=== PATIENT | female | born 1935 | race Caucasian/White ===

== ENCOUNTER 2021-02-23 11:56 | Emergency (ER) | payer MEDICARE, OTHER ==
[2021-02-23 12:21] LABS: BILIRUBIN,URINE NEGATIVE (NEGATIVE); GLUCOSE, URINE (UA) NEGATIVE (NEGATIVE); KETONES,URINE (UA) NEGATIVE (NEGATIVE); LEUKOCYTE ESTERASE, URINE NEGATIVE (NEGATIVE); NITRITE,URINE NEGATIVE (NEGATIVE); OCCULT BLOOD,URINE LARGE (NEGATIVE); PROTEIN,URINE NEGATIVE (NEGATIVE); UROBILINOGEN,URINE 0.2 (NORMAL) E.U./dL (NORMAL)
[2021-02-23 12:25] LABS: CLARITY,URINE SL. CLOUDY (CLEAR)
[2021-02-23] MEDS ORDERED: ONDANSETRON 4 MG/2 ML VIAL IVP STA ×2 (12:27→14:41)
[2021-02-23] MEDS ORDERED: HYDROmorphone 1 MG/ML CARPUJECT IVP STA (12:27)
--- NOTE | 2021-02-23 12:27 | ED Physician Documentation ---
History of Present Illness - Stated complaint Stated Complaint: FEMALE ,R BACK PX - Chief complaint Chief Complaint: Back Pain - Additonal information Additional information: 85-year-old female presents emergency department for evaluation of acute onset right low back and right flank pain. She reports severe cramping and pressure- like sensation. She is tearful in the exam room. She states that a number of years ago she did have kidney stones for which she was hospitalized for 5 days. She did undergo Surgical correction of the stones. She denies any dysuria urgency or frequency. No fevers. denies CP, SOA Past medical history includes hypertension and early diabetes. She does report a history of SVT status post cardioversion in May 2020. pt is visiting the [facility] from [facility]. here to see her Son. PMH: prediabetic, htn, hyperlipidemia SOC: never smoker; rare etoh meds: Losartan 50 mg twice daily, simvastatin 40 mg daily, metoprolol 50 mg twice daily, Metformin 500 mg twice daily Review of Systems Constitutional: denies: Fever Eyes: reports: Reviewed and negative Ears: reports: Reviewed and negative Nose: reports: Reviewed and negative Respiratory: denies: Dyspnea, Cough GI: reports: Abdominal Pain. denies: Nausea, Vomiting, Constipation, Diarrhea, Hematemesis : denies: Dysuria, Frequency, Hesitancy Skin: reports: Reviewed and negative Musculoskeletal: reports: Reviewed and negative Neurologic: reports: Reviewed and negative PD PAST MEDICAL HISTORY - Present Medications Home Medications: Ambulatory Orders Medication Instructions Recorded Confirmed HYDROcod/ACETAM 5/325 [[place] 5/325] 1 tab PO BID #8 tablet 02/23/21 - Allergies Allergies/Adverse Reactions: Allergies Allergy/AdvReac Type Severity Reaction Status Date / Time trovafloxacin [From John] Allergy Anaphylaxis Verified 02/23/21 12:13 PD ED PE EXPANDED - General General: Alert, In Pain - Cardiac Cardiac: Regular Rate, Radial strong equal, Cap refill < 2 sec. No: Murmur Present - Respiratory Respiratory: Clear to ausultation nohemi. No: Distress, Labored - Abdomen Abdomen: Normal Bowel sounds, Tender to palpation (right lowr abdomen and righ tlow back/flank. no guarding/rebound). No: Rebound, Guarding - Back Back: Normal exam. No: CVA TTP right, CVA TTP left - Derm Derm: Normal color, Warm and dry. No: Rash - Extremities Extremities: Normal. No: Deformity, Tenderness - Neuro Neuro: Alert and Oriented X 3, CNII-XII intact - GCS Eye Opening: Spontaneous Motor: Obeys Commands Verbal: Oriented Total: 15 Results - Vitals Vitals: Vital Signs - 24 hr 02/23/21 02/23/21 02/23/21 12:08 13:13 14:55 Temperature 36.8 C Heart Rate 64 70 74 Respiratory 16 16 16 Rate Blood Pressure 190/85 H 160/75 H 163/72 H O2 Saturation 99 94 96 02/23/21 17:00 Temperature Heart Rate 81 Respiratory 18 Rate Blood Pressure 183/96 H O2 Saturation 99 Oxygen O2 Source Room air - Labs Labs: Laboratory Tests 02/23/21 02/23/21 02/23/21 12:09 12:25 12:25 WBC 6.8 RBC 4.37 Hgb 12.8 Hct 38.8 MCV 88.8 MCH 29.3 MCHC 33.0 RDW 13.1 Plt Count 204 MPV 9.2 Neut # (Auto) 3.9 Lymph # (Auto) 2.1 [place] # (Auto) 0.7 Eos # (Auto) 0.1 Baso # (Auto) 0.1 Absolute Nucleated RBC 0.00 Nucleated RBC % 0.0 Sodium 140 Potassium 4.2 Chloride 106 Carbon Dioxide 23 Anion Gap 11.0 BUN 25 H Creatinine 1.3 H Estimated GFR (MDRD) 39 L Glucose 146 H Lactic Acid Calcium 9.4 Total Bilirubin 0.8 AST 19 ALT 18 Alkaline Phosphatase 44 Total Protein 7.4 Albumin 4.0 Globulin 3.4 Albumin/Globulin Ratio 1.2 Lipase 49 Urine Color YELLOW Urine Clarity SL. CLOUDY Urine pH 5.0 Ur Specific [place] 1.025 Urine Protein NEGATIVE Urine Glucose (UA) NEGATIVE Urine Ketones NEGATIVE Urine Occult Blood LARGE H Urine Nitrite NEGATIVE Urine Bilirubin NEGATIVE Urine Urobilinogen 0.2 (NORMAL) Ur Leukocyte Esterase NEGATIVE Urine RBC TNTC H Urine WBC 0-3 Ur Squamous Epith Cells MOD Squamous H Urine Bacteria Few Ur Microscopic Review INDICATED Urine Culture Comments NOT INDICATED 02/23/21 15:24 WBC RBC Hgb Hct MCV MCH MCHC RDW Plt Count MPV Neut # (Auto) Lymph # (Auto) Glasscock # (Auto) Eos # (Auto) Baso # (Auto) Absolute Nucleated RBC Nucleated RBC % Sodium Potassium Chloride Carbon Dioxide Anion Gap BUN Creatinine Estimated GFR (MDRD) Glucose Lactic Acid 1.3 Calcium Total Bilirubin AST ALT Alkaline Phosphatase Total Protein Albumin Globulin Albumin/Globulin Ratio Lipase Urine Color Urine Clarity Urine pH Ur Specific [place] Urine Protein Urine Glucose (UA) Urine Ketones Urine Occult Blood Urine Nitrite Urine Bilirubin Urine Urobilinogen Ur Leukocyte Esterase Urine RBC Urine WBC Ur Squamous Epith Cells Urine Bacteria Ur Microscopic Review Urine Culture Comments - Rads (name of study) Ct abd Radiology: Final report received (Appearance of colonic thickening while this could be secondary to incomplete distention may be possible early colitis. Focal area of decreased contrast enhancement within the infrarenal aorta. Overall appearance is suggestive of an area of ulceration and subsequent thrombus of indeterminate age.) PD MEDICAL DECISION MAKING - ED course Complexity details: reviewed results, d/w patient, d/w air quality consultant (malik vascular surgeon [facility]) ED course: 85-year-old female presents emergency department for evaluation of acute right flank and right lower quadrant abdominal pain. Similar to when she had kidney stones many years ago. On presentation she did have pain that was reproducible with deep palpation. Screening labs did not show any worrisome findings. No leukocytosis. The urine did show moderate amount of blood but no findings of infection. A CT Was completed and no findings of stones or hydronephrosis were seen. There is a suggestion of early colitis within the left lower quadrant. Patient is not having black or bloody stools and no left-sided abdominal pain was elicited. The most impressive finding was suggestion of an infrarenal thrombus in the aorta. These findings and CT images were shared with Dr. Bates a vascular surgeon with [facility]. 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 He would recommend that the patient remain on her aspirin daily but does not need emergent intervention at this time. He would recommend the patient be seen by a vascular surgeon when she returns to [place] within the next 4 to 6 weeks. The imaging findings and plan were discussed with the patient. A limited amount of hydrocodone was prescribed for pain and emergent return precautions were discussed. Departure - Departure Disposition: 01 Home, Self Care Clinical Impression: Acute right flank pain, Aortic thrombus Hematuria Qualifiers: Hematuria type: unspecified type Qualified Code(s): R31.9 - Hematuria, unspecified Condition: Stable Record reviewed to determine appropriate education?: Yes Prescriptions: HYDROcod/ACETAM 5/325 [[place] 5/325] 1 tab PO BID #8 tablet Comments: Lynda you were seen in the emergency department today for sudden onset of pain on your right low back and right lower quadrant of your abdomen. You had discussed with us a history of kidney stones in the past. Your urine today did show a moderate amount of blood but no infection. We did do a CT scan of your abdomen and it does show an area within the infrarenal aorta (near the kidneys) that is suggestive of a thrombus or clot formation. These images were discussed with a vascular surgeon in [place]. He was able to personally view the images. Based on the appearance of these it is likely that this is a chronic condition that you have had for quite some time. He would recommend very close follow-up with a vascular surgeon in [place] when you return within 4 to 6 weeks. He recommends that you take a daily dose of aspirin. Though the CT scan did not show any findings of kidney stones within the kidneys or the ureters some very small ones can be missed. It is very important that you continue to follow-up with your primary care provider. Your urine should be rechecked for blood and your symptoms should be rechecked in the next 2 to 3 weeks. If at any point you feel that you are having worsening pain, you develop any chest pain or shortness of air, you have bloody stools, then please return immediately to the emergency department. I am prescribing a short course of narcotic pain medication for you. These are potentially dangerous and addictive medications that should be used carefully. These medications may constipate you. Take an unir-vuv-dvalapt stool softener (docusate) twice daily with plenty of water while taking these medications. If you go 24 hours without a bowel movement, take [id number] miralax, per package instructions. Do not drink or drive while taking these medications. If you received narcotic or sedating medications while in the emergency department, do not drive for 24 hours. Store this medication in a safe, secure place and out of reach of children. It is a violation of federal law to give or sell this medication to another person or to use in a manner other than prescribed. The ED will not refill narcotic prescriptions, including prescriptions lost or stolen. To dispose of unwanted medications: 1. [facility] at [address] in [place] has a medication drop box. They accept prescription medications (in pill form) Saturday through Saturday 9:00 a.m. to 5:00 p.m. 2. The [facility] [employer] accepts prescription medications (in pill form only) for disposal year round. Call for more information. 3. Contact the [facility] for the next [facility] sponsored prescription drug collection event. , [phone], or [phone]; Note that many narcotic pain relievers also contain Tylenol/acetaminophen. Please ensure that your total dose of acetaminophen from all sources does not exceed 3 g (3000 mg) per day.
[2021-02-23 12:32] LABS: BACTERIA,URINE Few /HPF (None Seen); RBC,URINE TNTC /HPF (0-5); SQUAMOUS EPITHELIAL CELL,UR MOD Squamous (<= Few); WBC,URINE 0-3 /HPF (0-5)
[2021-02-23 12:35] LABS: BASOPHILS # (AUTO) 0.1 10^3/uL (0.0-0.1); BASOPHILS % (AUTO) 0.7 %; EOSINOPHILS # (AUTO) 0.1 10^3/uL (0.0-0.7); EOSINOPHILS % (AUTO) 1.6 %; HCT - HEMATOCRIT 38.8 % (37.0-47.0); HGB - HEMOGLOBIN 12.8 g/dL (12.0-16.0); LYMPHOCYTES # (AUTO) 2.1 10^3/uL (1.5-3.5); LYMPHOCYTES % (AUTO) 30.2 %; MEAN CORPUSCULAR HEMOGLOBIN 29.3 pg (27.0-31.0); MEAN CORPUSCULAR VOLUME 88.8 fL (81.0-99.0); MEAN PLATELET VOLUME 9.2 fL (7.9-10.8); MONOCYTES # (AUTO) 0.7 10^3/uL (0.0-1.0); MONOCYTES % (AUTO) 9.8 %; NEUTROPHILS # (AUTO) 3.9 10^3/uL (1.5-6.6); NEUTROPHILS % (AUTO) 57.1 %; PLT - PLATELET COUNT 204 10^3/uL (130-450); RED BLOOD COUNT 4.37 10^6/uL (4.20-5.40); RED CELL DISTRIBUTION WIDTH 13.1 % (12.0-15.0); WHITE BLOOD COUNT 6.8 x10^3/uL (4.8-10.8)
[2021-02-23 12:45] LABS: ALBUMIN/GLOBULIN RATIO 1.2 (1.0-2.2); BILIRUBIN,TOTAL 0.8 mg/dL (0.2-1.0); CALCIUM 9.4 mg/dL (8.5-10.3); CREATININE 1.3 mg/dL (0.4-1.0); POTASSIUM 4.2 mmol/L (3.5-5.0); TOTAL PROTEIN 7.4 g/dL (6.7-8.2)
[2021-02-23] MEDS ORDERED: SODIUM CHLORIDE 0.9% 1,000 ML IV STA (13:16)
[2021-02-23] MEDS ORDERED: IOPAMIDOL-300 100 ML VIAL ONE (13:38)
--- NOTE | 2021-02-23 15:07 | CT Report ---
PROCEDURE: Abdomen/Pelvis W INDICATIONS: Right low back/flank pain; ? ureter colic CONTRAST: IV CONTRAST: Isovue 300 ml: 100 PO CONTRAST: *NO PO CONTRAST TECHNIQUE: After the administration of IV contrast, 5 mm thick sections acquired from the diaphragms to the symp hysis. 5 mm thick coronal and sagittal reformats were acquired. For radiation dose reduction, the f ollowing was used: automated exposure control, adjustment of mA and/or kV according to patient size. COMPARISON: None. FINDINGS: Image quality: Excellent. ABDOMEN: Lung bases: Lung bases are clear. Heart size is normal. Solid organs: Liver and spleen are normal in size and enhancement. Hepatic steatosis is present. Ga llbladder is unremarkable Biliary system is non dilated. Pancreas enhances normally. No adrenal no dules. Kidneys are mildly atrophic. Peritoneum and bowel: Bowel loops are nonobstructive. There is a diffuse appearance of colonic thick ening. There is questionable minimal pericolonic stranding. No free fluid or air. Nodes and vessels: No retroperitoneal or mesenteric adenopathy by size criteria. The inferior vena c janae is normal in size. There is a slight appearance of focal outpouching within the infrarenal aorta with decreased contrast enhancement. No priors are available for comparison. Aortic calcifications c onsistent with atherosclerotic disease are also noted. Miscellaneous: No ventral hernias. PELVIS: Genitourinary: Bladder wall thickness is normal. Miscellaneous: No inguinal hernias or adenopathy. Bones: No suspicious bony lesions. No vertebral body compression fractures. IMPRESSION: 1. Diffuse appearance of colonic thickening. While this could be secondary to incomplete distention, very minimal appearance of stranding does raise suspicion for possible early colitis secondary to inf ection/inflammation or ischemia. 2. Focal area of decreased contrast enhancement within the infrarenal aorta as above. Overall appeara nce is suggestive of a focal area of ulceration and subsequent thrombus of indeterminate age. Appeara nce is not classic for acute dissection. No priors are available for comparison. As clinically indica cindy, further evaluation with vascular surgery may be obtained. Reviewed by: Makenzie Castillo MD on 02/23/2021 3:06 PM PDT Approved by: Makenzie Castillo MD on 02/23/2021 3:06 PM PDT Station ID: [id number]
[2021-02-23] MEDS ORDERED: IOPAMIDOL-300 100 ML VIAL IVP ONE (15:21)
[2021-02-23 17:01] VITALS: BP 183/96
== END 2021-02-23 18:38 | disposition home or self-care (01) ==
LOC: ED 11:56
DX: R10.9 Unspecified abdominal pain (principal); I74.19 Embolism and thrombosis of other parts of aorta; R31.9 Hematuria, unspecified
CPT/HCPCS: 36415; 74177; 80053; 81001; 83605; 83690; 85025; 96374; 96375; 96376; 99283; 99284; J1170; Q9967; 81003; 87086